=== PATIENT | female | born 1995 | race Hispanic/Latino ===

== ENCOUNTER 2022-03-01 12:19 | Emergency (ER) | payer MEDICAID, SELFPAY ==
[2022-03-01] MEDS ORDERED: Ondansetron ODT 4 MG TAB ONE (12:32)
[2022-03-01 13:05] LABS: Pregnancy Test - Urine (BHCG) Negative (Negative)
[2022-03-01 13:06] LABS: Pregu Control Background? CLEAR/WHITE (CLR/WHITE); Pregu Control Bar Appear? YES (CONTROL BAR); Specific Gravity 1.032 (1.002-1.036)
[2022-03-01] MEDS ORDERED: Acetylcysteine 20% 200 MG/ML 30 ML VIAL ONE (18:58)
== END 2022-03-01 13:32 | disposition home or self-care (01) ==
LOC: MADERS 12:19
DX: A08.4 Viral intestinal infection, unspecified (principal); K21.9 Gastro-esophageal reflux disease without esophagitis
CPT/HCPCS: 81025; 99284; J0132; Q0162

== ENCOUNTER 2022-12-17 00:10 | Emergency (ER) | payer SELFPAY ==
[2022-12-17 00:51] LABS: Bilirubin Negative (Negative); Blood, Urine Moderate (Negative); Clarity Clear (Clear); Glucose, Urine (Dipstick) Negative (Negative); Ketone, Urine 15 mg/dL (Negative); Leukocyte Negative (Negative); Nitrite Negative (Negative); Protein, Urine (Dipstick) Negative (Neg-Trace); Specific Gravity, Urine 1.026 (1.002-1.036); Urobilinogen 0.2 mg/dL (Less than 2); pH, Urine 6.5 (5.0-9.0)
[2022-12-17 00:52] LABS: Pregnancy Test - Urine (BHCG) Negative (Negative)
[2022-12-17 00:53] LABS: Pregu Control Background? CLEAR/WHITE (CLR/WHITE); Pregu Control Bar Appear? YES (CONTROL BAR); Specific Gravity 1.026 (1.002-1.036)
[2022-12-17 00:54] LABS: Mucous/LPF 2+ LPF (<2+); Squamous Epithelial 0-3 HPF (0-3); WBC/HPF 0-3 HPF (0-3)
[2022-12-17] MEDS ORDERED: Famotidine/PF 20 mg/2ml Vial ONE (01:49)
[2022-12-17] MEDS ORDERED: Dicyclomine 20 MG/2 ML VIAL ONE (01:50)
[2022-12-17] MEDS ORDERED: Lactated Ringer's 1,000 ML ONE (01:50)
[2022-12-17] MEDS ORDERED: Ketorolac Tromethamine 30 MG/ML VIAL ONE (01:50)
[2022-12-17] MEDS ORDERED: Ondansetron PF 4 MG/2 ML Vial ONE (01:51)
[2022-12-17 02:00] LABS: Band 5 % (5-11); Eosinophils 5 % (0-10); Hemoglobin 13.9 g/dL (12.0-16.0); Lymphocytes 29 % (21-51); MDiff Complete? YES; Mean Corpuscular HGB CONC 32.3 g/dL (32.0-36.0); Mean Corpuscular Hemoglobin 30.7 pg (27.0-31.0); Mean Platelet Volume 8.6 fL (7.4-10.4); Monocytes 9 % (0-10); Neutrophil 52 % (42-75); Platelet Count 298 10x3/uL (130-400); RBC Distribution Width 12.3 % (11.5-14.5); Red Blood Cell (RBC) Count 4.55 mill/uL (4.20-5.40); White Blood Cell (WBC) Count 9.1 10x3/uL (4.8-10.8)
[2022-12-17 02:13] LABS: ALT (SGPT) 20 U/L (8-55); AST (SGOT) 22 U/L (5-34); Albumin 4.5 g/dL (3.5-5.0); Alkaline Phosphatase 69 U/L (40-110); Anion Gap 14 mmol/L (10-20); BUN (Urea Nitrogen) 17 mg/dL (7.0-18.7); Bilirubin, Total 0.4 mg/dL (0.2-1.2); Calc. Creatinine Clearance 0 mL/min (70-130); Calcium 9.7 mg/dL (7.8-10.44); Carbon Dioxide 25 mmol/L (22-29); Chloride 106 mmol/L (98-107); Estimated GFR 118; Globulin 3.1 g/dL (2.4-3.5); Glucose 86 mg/dL (70-105); Lipase 36 U/L (8-78); Magnesium 2.1 mg/dL (1.6-2.6); Potassium 3.6 mmol/L (3.5-5.1); Protein, Total 7.6 g/dL (6.0-8.3); Sodium 141 mmol/L (136-145)
[2022-12-17 22:57] LABS: Campy jejuni + coli by PCR Negative (Negative); STEC Shiga Toxin 1+2 Negative (Negative); Salmonella spp. by PCR Negative (Negative); Shigella spp + EIEC by PCR Negative (Negative)
== END 2022-12-17 02:43 | disposition home or self-care (01) ==
LOC: MADERS 00:10
DX: R19.7 Diarrhea, unspecified (principal); R10.13 Epigastric pain; K21.9 Gastro-esophageal reflux disease without esophagitis
CPT/HCPCS: 80053; 81003; 81015; 81025; 83690; 83735; 85025; 87324; 87328; 87329; 87449; 87505; 93005; 96361; 96372; 96374; 96375; J1885; J2405; J7120; S0028